=== PATIENT | male | born 2000 | race Hispanic/Latino ===

== ENCOUNTER 2023-04-25 06:29 | Emergency (ER) | payer OTHER ==
[~2023-04-25] VITALS: Ht 180.3 cm; Wt 112.0 kg
[2023-04-25] MEDS ORDERED: HYDROCODONE/ACETAMINOPHEN 5/325 MG TAB PO ONE (08:30)
[2023-04-25] MEDS ORDERED: CIPR7.5D OT (08:45)
[2023-04-25 09:18] VITALS: BP 128/69; PULSE 89; RESP 16; O2SAT 98
== END 2023-04-25 09:20 | disposition home or self-care (01) ==
LOC: EDH 06:29
DX: H60.93 Unspecified otitis externa, bilateral (principal)